=== PATIENT | male | born 1960 | race Caucasian/White ===

== ENCOUNTER 2020-07-30 10:01 | Day surgery (SDC) | payer OTHER ==
[~2020-07-30 10:01] MED LIST: Lactated Ringers 1,000 ML IV SCH; Sodium Chloride 0.9% 10 ML Syringe FLUSH PRN
[2020-07-30] MEDS ORDERED: Propofol 200 MG/20 ML SDV ONE (10:58)
[2020-07-30] MEDS ORDERED: Midazolam 1 MG/ML 2 ML SDV ONE (10:58)
--- NOTE | 2020-07-30 10:59 | PCM.PN ---
- General Info Date of Service: 07/30/20 - Review of Systems Systems Review Comment:: 60-year-old male here for screening colonoscopy. He is medically stable to proceed today. His recent history and physical is reviewed and no significant changes are noted. This patient does have a history of diverticulitis. I have discussed the proposed colonoscopy with the patient. Risks such as but not limited to bleeding and GI injury reviewed. He agrees to proceed. - Patient Data Vitals - Most Recent: Last Vital Signs Temp 96.6 F L 07/30/20 10:11 Pulse 94 07/30/20 10:11 Resp 20 07/30/20 10:11 BP 136/90 07/30/20 10:11 Pulse Ox 95 07/30/20 10:11 Weight - Most Recent: 115.666 kg Med Orders - Current: Current Medications Lactated Ringer's (Ringers, Lactated) 1,000 mls @ 50 mls/hr IV ASDIRECTED [facility] Last Admin: 07/30/20 10:31 Dose: 50 mls/hr Documented by: Sodium Chloride (Saline Flush) 10 ml FLUSH Q8HR PRN PRN Reason: keep vein open Sepsis Event Note - Focused Exam Vital Signs: Vital Signs Temp Pulse Resp BP Pulse Ox 07/30/20 10:11 96.6 F L 94 20 136/90 95 - Problem List Review Problem List Initiated/Reviewed/Updated: Yes - My Orders Last 24 Hours: My Active Orders 07/29/20 15:44 Resuscitation Status Routine 07/30/20 Breakfast Nothing Per Oral Diet [DIET] 07/30/20 10:00 Peripheral IV Care [RC] . DIRECTED Lactated Ringers [Ringers, Lactated] 1,000 ml IV ASDIRECTED Sodium Chloride 0.9% [Saline Flush] 10 ml FLUSH Q8HR PRN Peripheral IV Insertion Adult [OM.PC] Routine 07/30/20 10:30 Patient to Empty Bladder [RC] ASDIRECTED 07/30/20 11:00 Verify Patient Consent Obtain [RC] ASDIRECTED - Assessment Assessment:: Colon cancer screening - Plan Plan:: Colonoscopy
--- NOTE | 2020-07-30 11:43 | PCM.OPNOTE ---
- General Post-Op/Procedure Note Date of Surgery/Procedure: 07/30/20 Operative Procedure(s): Colonoscopy with Polypectomy Findings: Small polyps in Ascending Colon and Sigmoid Colon Moderate Sigmoid Diverticulosis Moderate sized internal hemorrhoids Pre Op Diagnosis: Colon Cancer Screening Post-Op Diagnosis: Colon Polyps. Sigmoid Diverticulosis. Internal Hemorrhoids Anesthesia Technique: MAC Primary Surgeon: Faheem Hall Pathology: Colon Polyps EBL in mLs: 0 Complications: None Condition: Good
[2020-07-30 11:59] VITALS: BP 114/68; PULSE 82
--- NOTE | 2020-07-30 18:27 | OR ---
DATE OF SURGERY: 07/30/2020 SURGEON: Faheem Hall MD PREOPERATIVE DIAGNOSIS: Colon cancer screening. POSTOPERATIVE DIAGNOSIS: Colon polyps, sigmoid diverticulosis, internal hemorrhoids. OPERATION PERFORMED: Colonoscopy with polypectomy. INDICATIONS FOR SURGERY: This 60-year-old male who presents today for a screening colonoscopy. FINDINGS: Polyps are noted in two locations in the colon. There was a cluster of two polyps in the ascending colon and a solitary polyp in the sigmoid colon approximately 35 cm from the anal verge. All of these polyps were sessile in configuration and are 4-5 mm in size. The patient also has a moderate amount of diverticulosis in the sigmoid colon. Multiple diverticula, some of which are moderate to large size. These areas does not appear to be acutely inflamed. The patient also has moderate-sized internal hemorrhoids. DESCRIPTION OF PROCEDURE: The patient was taken to the operating room. He was given intravenous sedation, and with him in the left lateral decubitus position, digital rectal exam was performed showing no rectal masses. The Olympus colonoscope was inserted into the rectum. Retroflexed examination of the rectal canal was performed. The scope was then carefully advanced under direct visualization through the entire length of the colon until the cecum was reached. Cecal acquisition was confirmed by noting the normal internal cecal anatomy including the appendiceal orifice and the ileocecal valve. The light was also noted to transilluminate the abdominal wall in the right lower quadrant. After examining the cecum, the scope was slowly withdrawn, and during withdrawal of the scope, the two small polyps in the ascending colon were identified and these were removed grossly in their entirety with cold biopsy forceps. They were submitted as a single specimen. Examination was continued sequentially re-examining the colon during withdrawal, and in the sigmoid colon, the small polyp there was also removed with the cold biopsy forceps and retrieved. Examination was completed, and with no sign of bleeding or any other complication, the scope was removed and the patient was taken from the operating room in satisfactory condition. ESTIMATED BLOOD LOSS: Zero. COMPLICATIONS: None. PROGNOSIS: Good. /[id number]/MODL
== END 2020-07-30 12:11 | disposition home or self-care (01) ==
LOC: KA.SDS 10:01
PROVIDERS: ATTEND Surgery
DX: Z12.11 Encounter for screening for malignant neoplasm of colon (principal); D12.2 Benign neoplasm of ascending colon; K64.8 Other hemorrhoids; K57.30 Diverticulosis of large intestine without perforation or abscess without bleeding; I10 Essential (primary) hypertension; E78.5 Hyperlipidemia, unspecified; H61.23 Impacted cerumen, bilateral; Z88.0 Allergy status to penicillin; Z88.8 Allergy status to other drugs, medicaments and biological substances; Z79.899 Other long term (current) drug therapy
CPT/HCPCS: 00812; 45380; J2250; J7120

== ENCOUNTER 2024-11-14 08:41 | Day surgery (SDC) | payer BC ==
[2024-11-14] MEDS ORDERED: Propofol 200 MG/20 ML SDV IV ONE (08:42)
[2024-11-14] MEDS ORDERED: Sodium Chloride 0.9% 10 ML Syringe FLUSH PRN (08:45)
[2024-11-14] MEDS: Lactated Ringers 1,000 ML IV SCH (09:07)
[2024-11-14] MEDS ORDERED: Propofol 200 MG/20 ML SDV ONE ×2 (09:52→10:19)
[2024-11-14] MEDS ORDERED: Midazolam 1 MG/ML 2 ML SDV ONE (09:52)
[2024-11-14 12:06] VITALS: BP 160/98; PULSE 80
== END 2024-11-14 11:54 | disposition home or self-care (01) ==
LOC: KA.SDS 08:41
PROVIDERS: ATTEND Surgery
DX: Z12.11 Encounter for screening for malignant neoplasm of colon (principal); D12.0 Benign neoplasm of cecum; D12.2 Benign neoplasm of ascending colon; D12.3 Benign neoplasm of transverse colon; K57.30 Diverticulosis of large intestine without perforation or abscess without bleeding; I10 Essential (primary) hypertension; E66.9 Obesity, unspecified; Z88.8 Allergy status to other drugs, medicaments and biological substances; Z88.0 Allergy status to penicillin; Z79.01 Long term (current) use of anticoagulants; Z79.899 Other long term (current) drug therapy; Z86.0101 Personal history of adenomatous and serrated colon polyps
CPT/HCPCS: 00811; J2250; J2704; J7120